=== PATIENT | male | born 1975 | race African-American/Black ===

== ENCOUNTER 2017-08-11 22:49 | Emergency (ER) | payer SELFPAY ==
[~2017-08-11] VITALS: Ht 172.7 cm; Wt 88.0 kg
[2017-08-11 22:51] VITALS: BP 155/102; PULSE 93; RESP 15; TEMP 98.9; O2SAT 99
[2017-08-12] MEDS ORDERED: CEPHALEXIN MONOHYDRATE 500 MG CAP PO ONE (00:15)
[2017-08-12] MEDS ORDERED: IBUPROFEN 600 MG TAB PO ONE (00:15)
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
[2017-08-12] MEDS ORDERED: CEPH-460 PO (00:22)
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
[2017-08-12 01:23] VITALS: RESP 16
[2017-08-12 01:24] VITALS: BP 138/90
== END 2017-08-12 01:52 | disposition home or self-care (01) ==
LOC: NEPD 22:49
DX: S60.512A Abrasion of left hand, initial encounter (principal); S00.03XA Contusion of scalp, initial encounter; I10 Essential (primary) hypertension; E11.9 Type 2 diabetes mellitus without complications; Z79.4 Long term (current) use of insulin; F17.200 Nicotine dependence, unspecified, uncomplicated; Y04.8XXA Assault by other bodily force, initial encounter
CPT/HCPCS: 73120; 99283

== ENCOUNTER 2017-10-17 17:58 | Emergency (ER) | payer SELFPAY ==
[~2017-10-17] VITALS: Ht 175.3 cm; Wt 86.0 kg
[~2017-10-17 17:58] MED LIST: CEPH-460 PO
[2017-10-17 18:00] VITALS: BP 210/141; PULSE 100; RESP 18; TEMP 98.9; O2SAT 97
[2017-10-17 18:01] VITALS: BP 197/120
[2017-10-17 19:29] LABS: AUTOMATED NEUTROPHIL # 3.9 TH/MM3 (1.8-7.7); BASOPHIL % 0.6 % (0.0-2.0); EOSINOPHIL % 0.7 % (0.0-4.0); HEMATOCRIT 44.4 % (39.0-51.0); HEMOGLOBIN 15.1 GM/DL (13.0-17.0); LYMPH % 34.4 % (9.0-44.0); LYMPHOCYTE # 2.4 TH/MM3 (1.0-4.8); MEAN CELL VOLUME 86.7 FL (80.0-100.0); MEAN CORPUSCULAR HEMOGLOBIN 29.5 PG (27.0-34.0); MEAN PLATELET VOLUME 7.6 FL (7.0-11.0); MONO % 8.6 % (0.0-8.0); MONOCYTE # 0.6 TH/MM3 (0-0.9); NEUT % 55.7 % (16.0-70.0); PLATELET COUNT 317 TH/MM3 (150-450); RED BLOOD COUNT 5.13 MIL/MM3 (4.50-5.90); RED CELL DISTRIBUTION WIDTH 14.4 % (11.6-17.2); WHITE BLOOD COUNT 6.9 TH/MM3 (4.0-11.0)
[2017-10-17 19:36] LABS: BILIRUBIN, URINE NEG (NEG); BLOOD, URINE NEG (NEG); GLUCOSE,URINE NEG (NEG); KETONE, URINE NEG (NEG); NITRITE,URINE NEG (NEG); PH, URINE 6.5 (5.0-8.5); SQUAMOUS EPITHELIAL CELL URINE <1 /hpf (0-5); URINE COLOR YELLOW (YELLW/STRAW); URINE LEUKOCYTE ESTERASE NEG (NEG)
[2017-10-17 19:44] LABS: ALBUMIN 4.2 GM/DL (3.4-5.0); ALT (GPT) 44 U/L (12-78); AST (GOT) 47 U/L (15-37); BICARBONATE 26.5 MEQ/L (21.0-32.0); BLOOD UREA NITROGEN 15 MG/DL (7-18); CALCIUM 9.1 MG/DL (8.5-10.1); CHLORIDE 107 MEQ/L (98-107); CREATININE 1.16 MG/DL (0.60-1.30); GLOMERULAR FILTRATION RATE 85 ML/MIN (>89); GLUCOSE,RANDOM 112 MG/DL (74-106); SODIUM (NA) 140 MEQ/L (136-145)
[2017-10-17 19:47] LABS: ALKALINE PHOSPHATASE 119 U/L (45-117); TOTAL BILIRUBIN ADULT 0.5 MG/DL (0.2-1.0); TOTAL PROTEIN 8.3 GM/DL (6.4-8.2)
[2017-10-17 21:17] VITALS: BP 177/124; PULSE 98; RESP 18; TEMP 98.9; O2SAT 97
[2017-10-17] MEDS ORDERED: LANTUS2P SQ ×2 (21:33→21:50)
[2017-10-17] MEDS ORDERED: NOVOLOGP2 SQ ×2 (21:33→21:50)
[2017-10-17] MEDS ORDERED: LISI20TA PO ×2 (21:33→21:50)
--- NOTE | 2017-10-17 21:50 | PD ---
HPI Chief Complaint: Diabetic Time Seen by Provider: 21:33 Travel History International Travel<30 days: No Contact w/Intl Traveler<30days: No Traveled to known affect area: No History of Present Illness HPI Patient is a 42 year old male who comes in complaining of being out of his medications. He says he has been out of his insulin and blood pressure medications for 2 months. When asked why he came tonight, he says he just felt like he needed to get check out. He says he has had blurred vision for several weeks. He denies chest pain or SOB. He denies fever or chills. He denies head trauma or trauma to his eyes. PFSH Past Medical History Cerebrovascular Accident: Yes Diabetes: Yes Patient Takes Glucophage: No Diminished Hearing: No Hypertension: Yes Immunizations Current: Yes Tetanus Vaccination: Unknown Influenza Vaccination: Yes Past Surgical History Surgical History: No Previous Surgery Social History Alcohol Use: Yes Tobacco Use: Yes Substance Use: No Allergies-Medications (Allergen,Severity, Reaction): Coded Allergies: No Known Allergies (Verified , 08/11/17) Reported Meds & Prescriptions Reported Meds & Active Scripts Active Lantus Inj (Insulin Glargine) 1,000 Unit/10 Ml Vial 10 Units SQ HS 30 Days Novolog Inj (Insulin Aspart) 1,000 Unit/10 Ml Vial 10 Units SQ DAILY Lisinopril-Hctz 20-12.5 Mg Tab 1 Tab PO DAILY Reported Lisinopril-Hctz 20-12.5 Mg Tab 1 Tab PO DAILY Novolog Inj (Insulin Aspart) 1,000 Unit/10 Ml Vial 10 Units SQ DAILY Lantus Inj (Insulin Glargine) 100 Unit/Ml Inj 30 SQ HS Review of Systems General / Constitutional: No: Fever, Chills Eyes: Positive: Blurred Vision HENT: No: Lightheadedness Cardiovascular: No: Chest Pain or Discomfort, Palpitations Respiratory: No: Shortness of Breath Gastrointestinal: No: Nausea, Vomiting Musculoskeletal: No: Myalgias, Edema Skin: No Rash, No Change in Pigmentation Neurologic: No: Weakness, Dizziness Physical Exam Narrative GENERAL: Awake and alert, in no acute distress. SKIN: Focused skin assessment warm/dry. No wounds. HEAD: Atraumatic. Normocephalic. EYES: Pupils equal and round and reactive. No scleral icterus. EOMI. ENT: No nasal bleeding or discharge. Mucous membranes pink and moist. CARDIOVASCULAR: Regular rate and rhythm. No murmur appreciated. RESPIRATORY: No accessory muscle use. Clear to auscultation. Breath sounds equal bilaterally. MUSCULOSKELETAL: No obvious deformities. No clubbing. No cyanosis. No edema. NEUROLOGICAL: Awake and alert. No obvious cranial nerve deficits. Motor grossly within normal limits. Normal speech. Data Data Last Documented VS Vital Signs Date Time Temp Pulse Resp B/P (MAP) Pulse Ox O2 Delivery O2 Flow Rate FiO2 10/17/17 22:06 10/17/17 21:17 98.9 98 18 97 Orders Orders Beta Hydroxybutyrate (Acetone) (10/17/17 18:16) Complete Blood Count With Diff (10/17/17 18:16) Comprehensive Metabolic Panel (10/17/17 18:16) Urinalysis - C+S If Indicated (10/17/17 18:16) Blood Glucose (10/17/17 18:16) Ed Discharge Order (10/17/17 21:51) Labs Laboratory Tests Test 10/17/17 18:45 10/17/17 18:50 Urine Color YELLOW Urine Turbidity CLEAR Urine pH 6.5 Urine Specific [place] 1.017 Urine Protein NEG mg/dL Urine Glucose (UA) NEG mg/dL Urine Ketones NEG mg/dL Urine Occult Blood NEG Urine Nitrite NEG Urine Bilirubin NEG Urine Urobilinogen 2.0 MG/DL Urine Leukocyte Esterase NEG Urine RBC LESS THAN 1 /hpf Urine WBC LESS THAN 1 /hpf Urine Squamous Epithelial Cells <1 /hpf Microscopic Urinalysis Comment CULT NOT INDICATED White Blood Count 6.9 TH/MM3 Red Blood Count 5.13 MIL/MM3 Hemoglobin 15.1 GM/DL Hematocrit 44.4 % Mean Corpuscular Volume 86.7 FL Mean Corpuscular Hemoglobin 29.5 PG Mean Corpuscular Hemoglobin Concent 34.0 % Red Cell Distribution Width 14.4 % Platelet Count 317 TH/MM3 Mean Platelet Volume 7.6 FL Neutrophils (%) (Auto) 55.7 % Lymphocytes (%) (Auto) 34.4 % Monocytes (%) (Auto) 8.6 % Eosinophils (%) (Auto) 0.7 % Basophils (%) (Auto) 0.6 % Neutrophils # (Auto) 3.9 TH/MM3 Lymphocytes # (Auto) 2.4 TH/MM3 Monocytes # (Auto) 0.6 TH/MM3 Eosinophils # (Auto) 0.0 TH/MM3 Basophils # (Auto) 0.0 TH/MM3 CBC Comment DIFF FINAL Differential Comment Blood Urea Nitrogen 15 MG/DL Creatinine 1.16 MG/DL Random Glucose 112 MG/DL Total Protein 8.3 GM/DL Albumin 4.2 GM/DL Calcium Level 9.1 MG/DL Alkaline Phosphatase 119 U/L Aspartate Amino Transf (AST/SGOT) 47 U/L Alanine Aminotransferase (ALT/SGPT) 44 U/L Total Bilirubin 0.5 MG/DL Sodium Level 140 MEQ/L Potassium Level 3.2 MEQ/L Chloride Level 107 MEQ/L Carbon Dioxide Level 26.5 MEQ/L Anion Gap 7 MEQ/L Estimat Glomerular Filtration Rate 85 ML/MIN B-Hydroxybutyrate 0.18 MMOL/L MDM Medical Decision Making Medical Screen Exam Complete: Yes Emergency Medical Condition: Yes Medical Record Reviewed: Yes Differential Diagnosis Medication refill versus hyperglycemia versus hypertension Narrative Course Patient is a 42 year old male who comes in because he needs his diabetes/HTN medications. Exam shows no acute abnormalities. Given prescriptions for his insulin and Lisinopril. Advised to follow up with ophthalmology and the [facility]. Advised return to the ED as needed for any worsening symptoms. Diagnosis Primary Impression: Medication refill Referrals: [facility] call for appointment Patient Instructions: General Instructions, Medication Refill, ED Additional Instructions: Follow up in the [facility]. Follow up with ophthalmology. Return to the ED as needed for any worsening symptoms. Scripts Insulin Glargine Inj (Lantus Inj) 1,000 Unit/10 Ml Vial 10 UNITS SQ HS for Blood Sugar Management for 30 Days, VIAL 0 Refills Prov: Karin Sims MD 10/17/17 Insulin Aspart Inj (Novolog Inj) 1,000 Unit/10 Ml Vial 10 UNITS SQ DAILY for Blood Sugar Management, #10 ML 0 Refills Prov: Karin Sims MD 10/17/17 Lisinopril-Hctz (Lisinopril-Hctz) 20-12.5 Mg Tab 1 TAB PO DAILY for Blood Pressure Management, #30 TAB 0 Refills Prov: Karin Sims MD 10/17/17 Disposition: 01 DISCHARGE HOME Condition: Stable Karin Sims MD Oct 17, 2017 21:50
== END 2017-10-17 22:06 | disposition home or self-care (01) ==
LOC: NEPD 17:58
DX: E11.9 Type 2 diabetes mellitus without complications (principal); I10 Essential (primary) hypertension; H53.8 Other visual disturbances; Z72.0 Tobacco use; Z79.4 Long term (current) use of insulin
CPT/HCPCS: 80053; 81001; 82010; 85025; 99284

== ENCOUNTER 2017-11-16 20:17 | Emergency (ER) | payer SELFPAY ==
[~2017-11-16 20:17] MED LIST changes: -CEPH-460 PO; +LANTUS2P SQ; +LISI20TA PO; +NOVOLOGP2 SQ
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
== END 2017-11-17 03:26 | disposition home or self-care (01) ==
LOC: NEDAMB 20:17 → NEPD 11-17 03:26
DX: F10.129 Alcohol abuse with intoxication, unspecified (principal); E11.9 Type 2 diabetes mellitus without complications; I10 Essential (primary) hypertension; Z59.0 Homelessness; Z86.73 Personal history of transient ischemic attack (TIA), and cerebral infarction without residual deficits; Z72.0 Tobacco use; Z79.4 Long term (current) use of insulin; Z79.899 Other long term (current) drug therapy
CPT/HCPCS: 99283